=== PATIENT | female | born 1970 | race African-American/Black ===

== ENCOUNTER 2021-08-04 13:08 | Emergency (ER) | payer OTHER, SELFPAY ==
--- NOTE | ~2021-08-04 | CT_ITS ---
EXAMINATION: CT HEAD WITHOUT CONTRAST CT CERVICAL SPINE WITHOUT CONTRAST CLINICAL INFORMATION: Fall and hit head. COMPARISON: None. TECHNIQUE: Contiguous axial imaging was performed from the skull base to vertex without intravenous administration of contrast. Contiguous axial imaging was performed from the upper chest through the skull base without intravenous administration of contrast. Coronal and sagittal reformats were obtained at the acquisition workstation. This CT examination was performed using dose optimization techniques as appropriate, variously including the following: *Automated exposure control *Adjustment of mA and/or kV according to patient size (this includes techniques or standardized protocols for targeted exams where dose is matched to indication/reason for exam; i.e. extremities or head) *Use of iterative reconstruction technique DLP: 359 mGy-cm FINDINGS: Head: There is no evidence of acute intracranial hemorrhage or edematous territorial infarction. There is no abnormal attenuation within the brain parenchyma. Youssef-white matter differentiation is preserved. The ventricles are normal in size and configuration. No evidence for obstructive hydrocephalus. No abnormal mass effect or midline shift. No extra-axial fluid collections. Very small hematoma in the left occipital scalp (13:151). No calvarial fracture. Mucosal thickening of the paranasal sinuses. No air-fluid level. The mastoids and middle ear cavities are clear. Cervical Spine: The atlantooccipital and atlantoaxial articulations remain well aligned. Straightening of the normal cervical lordosis. Otherwise, there is anatomic alignment of the vertebral bodies and posterior elements. No evidence of acute fracture or subluxation. Mild multilevel disc space narrowing and uncovertebral hypertrophy. Prominent anterior osteophytes at C3, C4 and C5 with ossification of the posterior longitudinal ligament from C3 through C6. Moderate degenerative changes of the atlantodental interval. There is no prevertebral soft tissue swelling. Enlarged nasopharyngeal tonsils. The thyroid gland and remaining cervical soft tissues are normal in appearance. The lung apices demonstrate small subpleural blebs. CT/CT cervical spine wo con IMPRESSION: Small hematoma in the left occipital scalp without acute intracranial abnormalities. No cervical spine fracture or malalignment. Mild to moderate multilevel cervical spondylosis with ossification of the posterior longitudinal ligament leading to varying degrees of central canal narrowing. Enlarged nasopharyngeal adenoids. Correlate with clinical examination and direct visualization.
[2021-08-04 13:58] VITALS: BP 139/94; PULSE 106; RESP 20; TEMP 36.7; O2SAT 98; BMI 23.1
[2021-08-04 17:01] VITALS: BP 162/98; PULSE 96; RESP 20; TEMP 37.6; O2SAT 99
--- NOTE | 2021-08-04 17:20 | ECG_ITS ---
Test Reason : HEAD INJURY Blood Pressure : / mmHG Vent. Rate : 084 BPM Atrial Rate : 084 BPM P-R Int : 112 ms QRS Dur : 080 ms QT Int : 428 ms P-R-T Axes : 001 087 051 degrees QTc Int : 505 ms Normal sinus rhythm Prolonged QT Abnormal ECG No previous ECGs available Referred By: Lizette Allen Electronically Signed By:LASHAY YADAV
--- NOTE | 2021-08-04 17:21 | ED.GENADULT ---
HPI - General Adult General Chief complaint: Head Injury Stated complaint: AMS S/P FALL TUESDAY,FROM [facility] PER EMS Time Seen by Provider: 08/04/21 16:14 Source: patient Mode of arrival: ambulatory Limitations: no limitations History of Present Illness HPI narrative: Patient comes to the emergency room complaining of syncopal episodes, hitting her head, nausea vomiting. Patient states that she was at work, patient does not remember what happened, states that she was found on the ground, patient went home. Shortly after, patient had an episode in her basement where she was feeling lightheaded, she was able to lower herself to the ground, passed out again. Patient has been complaining for the last 2 days of headache, nausea and vomiting. Patient admits that she has been going through a lot, breast health issues, and therefore has been drinking more alcohol. Patient states that she went to [facility] this morning, she was initially admitted, but due to the history of syncope/head injury she was sent to the emergency room P Related Data Allergies Allergy/AdvReac Type Severity Reaction Status Date / Time No Known Allergies Allergy Verified 08/04/21 14:03 Review of Systems Review of Systems: Constitutional : No Weight loss, No Fever, No Chills, No Night Sweats, No Fatigue, No Malaise ENT/Mouth : No Hearing loss, No Ear Pain, No Nasal Congestion, No Sinus Pain, No Hoarseness, No sore throat, No Rhinorrhea, No Swallowing Difficulty Eyes: No Eye Pain, No Swelling, No Redness, No Foreign Body, No Discharge, No Vision Changes Cardiovascular : No Chest Pain, No SOB, No Dyspnea on Exertion, No Orthopnea, No Edema, No Palpitations Respiratory : No Cough, No Sputum, No Wheezing, No Smoke Exposure, No Dyspnea Gastrointestinal : Occasional episodes of nausea vomiting, No Diarrhea, No Constipation, No abdominal Pain, No Hematochezia, No Melena Genitourinary : no irregular bleeding, No Dysuria, No Urinary Frequency, No Hematuria, No Urinary Incontinence, No Urgency, No Flank Pain, No Urinary Flow Changes, No Hesitancy Musculoskeletal : No joint pain, No Myalgias, No Joint Swelling Skin : No Skin Lesions, No rash Neuro : No Weakness, No Numbness, No Paresthesias, complaining of 2 episodes of loss of consciousness, 3 day history of head injury secondary to loss of consciousness, complaining of headache Psych : No Anxiety/Panic, No Depression, No SI/HI/AH/VH, No Social Issues, Heme/Lymph: No Bruising, No Bleeding,No Lymphadenopathy Endocrine : No Polyuria, No Polydipsia, No Temperature Intolerance [facility] Past Medical History Medical History Alcohol abuse Social History Social History Advance Directives: No Advance Directives Information Provided: No Patient : No Physical Exam ED Vital Signs: Vital Signs - 24 hr 08/04/21 13:58 08/04/21 17:01 08/04/21 19:44 Temperature 98.1 F 99.6 F 98.8 F Pulse Rate 106 H 96 102 H Respiratory Rate 20 20 20 Blood Pressure 139/94 H 162/98 H 157/81 H Pulse Oximetry 98 99 97 BMI result Body Mass Index 23.1 Const Other: Appearance: Alert. Oriented X3. No acute distress. Well-appearing Eyes: Pupils equal, round and reactive to light. ENT: Pharynx normal. Neck: Normal inspection. Neck supple. No lymph nodes noted. No crepitus, no palpable step-offs, mild pain to palpation on the right side of the neck CVS: Normal heart rate and rhythm. Pulses normal. Normal S1 and S2 Respiratory: No respiratory distress. Breath sounds normal. No Wheezing. No rales Abdomen: Soft and nontender. No rigidity. No distention. Skin: Skin warm and dry. Normal skin color. Normal skin turgor. Extremities: No lower extremity edema. No Lacerations. No Rash Neuro: Oriented X 3. No motor deficit. No sensory deficit. Moving all extremities. No slurred speech. CN 2 through 12 grossly intact Psych: calm, cooperative, normal affect Course Course Course Narrative: It is likely that the patient's syncopal episodes were secondary to alcohol intake. EKG within normal limits, cardiac workup pending. Head CT and neck CT pending I discussed the CT head and neck with the patient, no acute findings. Troponin negative. It is likely that patient's syncopal episodes are secondary to alcohol intake/intoxication Care team was consulted. [facility] Kika can take the patient back tomorrow at 09:45 in the morning. I discussed this with the patient, patient feels safe going home and will report tumor [place] 1st thing in the morning. Medical Decision Making Lab Data Result diagrams: 08/04/21 18:14 08/04/21 18:14 Labs: Lab Results 08/04/21 08/04/21 08/04/21 Range/Units 18:14 18:14 18:14 WBC 4.6 L (4.8-10.8) X10*3/uL RBC 4.27 (4.20-5.50) X10*6/uL Hgb 14.6 (12.0-16.0) g/dl Hct 44.4 (37.0-47.0) % MCV 104.0 H (80.0-98.0) fL MCH 34.2 H (27.0-33.0) pg MCHC 32.9 (31.0-35.0) g/dl RDW 12.1 (11.0-16.0) % Plt Count 191 (160-400) X10*3/uL MPV 10.0 (9.4-12.3) fL Immature Gran % (Auto) 0.2 (0.0-0.4) % Neut % (Auto) 52.7 (45-73) % Lymph % (Auto) 31.3 (20-40) % Hill % (Auto) 12.9 H (2-11) % Eos % (Auto) 2.2 (0-4) % Baso % (Auto) 0.7 (0-2) % Lymph # (Auto) 1.4 (1.2-4.9) X10*3/uL Hill # (Auto) 0.6 (0.1-1.2) X10*3/uL Eos # (Auto) 0.1 (0.0-0.4) X10*3/uL Baso # (Auto) 0.0 (0.0-0.2) X10*3/uL Abs Immat Gran (auto) 0.01 (0.00-0.03) X10*3/uL Absolute Neuts (auto) 2.4 (2.0-8.3) x10*3/uL Absolute Nucleated RBC 0.000 (0.0-0.012) X10*3/uL Nucleated RBC % (auto) 0.0 (0.0-0.2) /100WBC PT 10.6 (9.9-13.0) SEC INR 0.9 (0.9-1.1) Sodium 143 (135-145) mmol/L Potassium 4.5 (3.3-5.1) mmol/L Chloride 105 (96-108) mmol/L Carbon Dioxide 27 (22-29) mmol/L Anion Gap 16 (12-20) BUN 12 (9-16) mg/dL Creatinine 0.85 (0.5-1.4) mg/dL Estim Creat Clear Calc 71.2 Estimated GFR > 60 Random Glucose 116 H (60-115) mg/dL Calcium 9.6 (8.4-10.2) mg/dL Magnesium 2.3 (1.6-2.6) mg/dL Troponin I High Sens (<3.5-17.0) ng/L Ethyl Alcohol mg/dL 08/04/21 08/04/21 Range/Units 18:14 18:14 WBC (4.8-10.8) X10*3/uL RBC (4.20-5.50) X10*6/uL Hgb (12.0-16.0) g/dl Hct (37.0-47.0) % MCV (80.0-98.0) fL MCH (27.0-33.0) pg MCHC (31.0-35.0) g/dl RDW (11.0-16.0) % Plt Count (160-400) X10*3/uL MPV (9.4-12.3) fL Immature Gran % (Auto) (0.0-0.4) % Neut % (Auto) (45-73) % Lymph % (Auto) (20-40) % Hill % (Auto) (2-11) % Eos % (Auto) (0-4) % Baso % (Auto) (0-2) % Lymph # (Auto) (1.2-4.9) X10*3/uL Hill # (Auto) (0.1-1.2) X10*3/uL Eos # (Auto) (0.0-0.4) X10*3/uL Baso # (Auto) (0.0-0.2) X10*3/uL Abs Immat Gran (auto) (0.00-0.03) X10*3/uL Absolute Neuts (auto) (2.0-8.3) x10*3/uL Absolute Nucleated RBC (0.0-0.012) X10*3/uL Nucleated RBC % (auto) (0.0-0.2) /100WBC PT (9.9-13.0) SEC INR (0.9-1.1) Sodium (135-145) mmol/L Potassium (3.3-5.1) mmol/L Chloride (96-108) mmol/L Carbon Dioxide (22-29) mmol/L Anion Gap (12-20) BUN (9-16) mg/dL Creatinine (0.5-1.4) mg/dL Estim Creat Clear Calc Estimated GFR Random Glucose (60-115) mg/dL Calcium (8.4-10.2) mg/dL Magnesium (1.6-2.6) mg/dL Troponin I High Sens < 3.5 (<3.5-17.0) ng/L Ethyl Alcohol 192 mg/dL Discharge Plan Discharge Clinical Impression: Closed head injury, Syncope, Alcohol abuse Patient Disposition: Home, Self-Care Instructions: Abuse of Alcohol (DC), Syncope (ED) Additional Instructions: [facility] Anand is expecting you tomorrow at 09:45. Please follow-up with your primary care physician tomorrow. If you have any worsening or new symptoms, please return to the emergency room or call 911
[2021-08-04 18:23] LABS: MANUAL DIFF FLAG NO
[2021-08-04 18:24] LABS: Basophils Percent Auto 0.7 % (0-2); Eosinophils Absolute Auto 0.1 X10*3/uL (0.0-0.4); Eosinophils Percent Auto 2.2 % (0-4); Hematocrit 44.4 % (37.0-47.0); Hemoglobin 14.6 g/dl (12.0-16.0); Imm Gran Abs Auto 0.01 X10*3/uL (0.00-0.03); Imm Gran Pct Auto 0.2 % (0.0-0.4); Lymphocytes Absolute Auto 1.4 X10*3/uL (1.2-4.9); Lymphocytes Percent Auto 31.3 % (20-40); Mean Corpuscular HGB Conc 32.9 g/dl (31.0-35.0); Mean Corpuscular Hemoglobin 34.2 pg (27.0-33.0); Monocytes Absolute Auto 0.6 X10*3/uL (0.1-1.2); Monocytes Percent Auto 12.9 % (2-11); Neutrophils Absolute Auto 2.4 x10*3/uL (2.0-8.3); Neutrophils Percent Auto 52.7 % (45-73); Platelet Count 191 X10*3/uL (160-400); Red Blood Count 4.27 X10*6/uL (4.20-5.50); Red Cell Distribution Width 12.1 % (11.0-16.0); White Blood Count 4.6 X10*3/uL (4.8-10.8)
[2021-08-04 18:33] LABS: INTERNATIONAL NORM RATIO 0.9 (0.9-1.1); Prothrombin Time 10.6 SEC (9.9-13.0)
[2021-08-04 18:37] LABS: Ethanol 192 mg/dL
[2021-08-04 18:40] LABS: Anion Gap 16 (12-20); Blood Urea Nitrogen 12 mg/dL (9-16); Calcium 9.6 mg/dL (8.4-10.2); Carbon Dioxide 27 mmol/L (22-29); Chloride 105 mmol/L (96-108); Creatinine Clr Calc Pharmacy 71.2; Estimated Glomerular Filt Rate > 60; Glucose Random 116 mg/dL (60-115); Magnesium 2.3 mg/dL (1.6-2.6); Potassium 4.5 mmol/L (3.3-5.1); Sodium 143 mmol/L (135-145)
[2021-08-04 19:44] VITALS: BP 157/81; PULSE 102; RESP 20; TEMP 37.1; O2SAT 97
[2021-08-04 19:46] LABS: Troponin-I High Sensitivity < 3.5 ng/L (<3.5-17.0)
--- NOTE | 2021-08-04 19:49 | MHC.CARE ---
CARE Team reached out to [facility] to coordinate pt's return to detox, however, [facility] stated that they are unable to accommodate pt as pt would need to be back at [facility] by 2029 to be accepted tonight. Detox athletic coordinator, Yessica, ([phone]) reports that they have an intake appointment tomorrow morning at 0945.
[2021-08-04 20:21] VITALS: BP 155/92; PULSE 106; RESP 18; O2SAT 98
--- NOTE | 2021-08-04 20:24 | PC.NURSE ---
recieved pt at at 7pm from RN . a&o , no sob or chest pain. reviewed discharge instructions and plan of care. pt verbalized understanding. Vitals taken
== END 2021-08-04 20:28 | disposition home or self-care (01) ==
PROVIDERS: Emergency Provider Emergency Medicine; PCP Nurse Practitioner Family
DX: R55 Syncope and collapse (principal); S09.90XA Unspecified injury of head, initial encounter; W18.30XA Fall on same level, unspecified, initial encounter; F10.10 Alcohol abuse, uncomplicated; Y90.6 Blood alcohol level of 120-199 mg/100 ml; Y93.9 Activity, unspecified; Y92.9 Unspecified place or not applicable; Y99.9 Unspecified external cause status
CPT/HCPCS: 36415; 70450; 72125; 80048; 82077; 83735; 84484; 85025; 85610; 93005; 99284